=== PATIENT | female | born 1970 | race African-American/Black ===

== ENCOUNTER → 2020-06-21 | Emergency (ER) | payer MEDICAID, OTHER ==
[~2020-06-21] VITALS: Ht 157.5 cm; Wt 53.1 kg
[~2020-06-21] MED LIST: IBUPROFEN600 MG ORAL; NORCO 5-325 TA1 EACH ORAL; Omnipaque 350 100ml vial INJ PRN
[2020-06-21 18:27] VITALS: BP 159/92
--- NOTE | 2020-06-21 20:00 | Emergency Room Report ---
History of Present Illness General Chief Complaint: Pain Source: Patient Present Illness HPI This patient left prior to full physical exam evaluation by medical provider. I very briefly saw this patient right after she was triaged and explained to her that I will be ordering labs and imaging. I discussed with this patient that as soon as a bed opens she will be the first to be brought back to a bed in the main ED. Pt. verbalized her understanding and agreement. Pt. was not in the waiting room when being called several times. Pt. Did not have blood work or imaging. performed. Allergies: Coded Allergies: No Known Allergies (Unverified , 12/28/18) COVID-19 Screening Contact w/high risk pt: No Experienced COVID-19 symptoms?: No COVID-19 Testing performed PASTER HAT LINING: No Patient History Past Medical History: see triage record Last Menstrual Period: 06/04/2020 Now: No Nursing Documentation-PMH Past Medical History: No Stated History Physical Exam Vital Signs Date Time Temp Pulse Resp B/P (MAP) Pulse Ox O2 Delivery O2 Flow Rate FiO2 06/21/20 18:27 97.5 70 22 159/92 (114) 100 Room Air Medical Decision Making PA Attestation Dr. Quintana Is my supervising Physician whom patient management has been discussed with. ER Course This patient left prior to full physical exam evaluation by medical provider. I very briefly saw this patient right after she was triaged and explained to her that I will be ordering labs and imaging. I discussed with this patient that as soon as a bed opens she will be the first to be brought back to a bed in the main ED. Pt. verbalized her understanding and agreement. Pt. was not in the waiting room when being called several times. Pt. Did not have blood work or imaging. performed. Last Vital Signs Date Time Temp Pulse Resp B/P (MAP) Pulse Ox O2 Delivery O2 Flow Rate FiO2 06/21/20 18:27 97.5 70 22 159/92 (114) 100 Room Air Disposition: ELOPED Condition: Unknown Abbi Castellano Jun 21, 2020 20:00
== END | disposition left against medical advice (07) ==
LOC: EMR 19:00
DX: R52 Pain, unspecified (principal); Z53.21 Procedure and treatment not carried out due to patient leaving prior to being seen by health care provider
CPT/HCPCS: 99281

== ENCOUNTER 2020-07-22 16:18 | Emergency (ER) | payer MEDICAID ==
[~2020-07-22] VITALS: Ht 157.5 cm; Wt 54.0 kg
[~2020-07-22 16:18] MED LIST changes: -Omnipaque 350 100ml vial INJ PRN
[2020-07-22 17:00] VITALS: BP 124/72
--- NOTE | 2020-07-22 17:41 | Emergency Room Report ---
History of Present Illness General Chief Complaint: Vaginal Source: Patient Present Illness HPI 49-year-old female presents to the emergency department complaining of acute onset of green/brownish vaginal discharge that is malodorous x2 days. Patient reports onset occurred after having unprotected intercourse with her partner whom may have an STD. Patient denies recent antibiotic use she reports having history of BV once in the past. She denies itchiness, genital lesions/sores, blisters, swollen tender lymph nodes. Patient denies abdominal pain or tenderness. She denies nausea vomiting, fevers or chills. She denies joint pain. She denies urinary frequency, urgency, dysuria or hematuria. No other aggravating or relieving factors at this time. 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 Patient History Past Medical History: see triage record Past Surgical History: none Last Menstrual Period: 07/05/20 Now: No Reviewed Nursing Documentation: PMH: Agreed; PSxH: Agreed Nursing Documentation-PMH Past Medical History: No Stated History Review of Systems All Other Systems: negative except mentioned in HPI Physical Exam Vital Signs Date Time Temp Pulse Resp B/P (MAP) Pulse Ox O2 Delivery O2 Flow Rate FiO2 07/22/20 16:26 98.2 67 15 124/72 (89) 95 Room Air Sp02 EP Interpretation: reviewed, normal General Appearance: no apparent distress, alert, GCS 15, non-toxic Head: normocephalic, atraumatic Eyes: bilateral eye normal inspection, bilateral eye PERRL ENT: hearing grossly normal, normal voice Neck: full range of motion Respiratory: lungs clear, normal breath sounds, speaking full sentences Cardiovascular #1: regular rate, rhythm Gastrointestinal: non tender, soft Rectal: deferred Genitourinary: normal inspection, no CVA tenderness, adnexa normal, bladder normal, cervix normal, other - No CMT, there is green colored opaque discharge in the vaginal vault. Musculoskeletal: normal range of motion, gait/station normal, non-tender Neurologic: alert, motor strength/tone normal, oriented x3, sensory intact, responsive, speech normal Psychiatric: judgement/insight normal Skin: no rash, normal color Lymphatic: no adenopathy Medical Decision Making PA Attestation Dr. Escobar Is my supervising Physician whom patient management has been discussed with. Diagnostic Impression: Primary Impression: Vaginal discharge Additional Impression: Contact with or exposure to venereal diseases ER Course 49-year-old female presents to the emergency department complaining of acute onset of green/brownish vaginal discharge that is malodorous x2 days. Patient reports onset occurred after having unprotected intercourse with her partner whom may have an STD. Patient denies recent antibiotic use she reports having history of BV once in the past. She denies itchiness, genital lesions/sores, blisters, swollen tender lymph nodes. Patient denies abdominal pain or tenderness. She denies nausea vomiting, fevers or chills. She denies joint pain. She denies urinary frequency, urgency, dysuria or hematuria. No other aggravating or relieving factors at this time. Ddx considered but are not limited to UTi , Pyelo, STI, Stone, Cystitis, vaginal laceration, vaginitis. Vital signs: are WNL, pt. is afebrile H& PE are most consistent with: contact with venereal disease with symptoms of vaginal dc ORDERS: - Wet [place] : no clue, trich or yeast ED INTERVENTIONS: -Rocephin IM --- Doxy Rx'd for 7 days. DISCHARGE: At this time pt. is stable for d/c to home. Will provide printed patient care instructions, and any necessary prescriptions. Care plan and follow up instructions have been discussed with the patient prior to discharge. discussed with the patient prior to discharge. Last Vital Signs Date Time Temp Pulse Resp B/P (MAP) Pulse Ox O2 Delivery O2 Flow Rate FiO2 07/22/20 17:00 98.2 15 124/72 95 Room Air 07/22/20 16:26 67 Status: improved Disposition: HOME, SELF-CARE Condition: Stable Scripts Doxycycline Hyclate* (VIBRAMYCIN*) 100 Mg Capsule 100 MG ORAL EVERY 12 HOURS for 7 Days, #14 CAP 0 Refills Prov: Abbi Castellano 07/22/20 Referrals: [facility],REFERRING (PCP) Patient Instructions: Medical Screening Exam, Vaginitis, [id number] Additional Instructions: Take medications as directed. Follow up with a Primary Care Provider in 3-5 days, even if your symptoms have resolved. Return sooner to ED if new symptoms occur, or current symptoms become worse. - Please note that this Emergency Department Report was dictated using Tiendeocertified emergency vehicle technician technology software, occasionally this can lead to erroneous entry secondary to interpretation by the dictation equipment. Abbi Castellano Jul 22, 2020 17:41
[2020-07-22] MEDS ORDERED: Lidocaine 1% MPF 10mg/ml 5ml INJ ONE (18:30)
[2020-07-22] MEDS ORDERED: VIBRAMYCIN100 MG ORAL (18:37)
[2020-07-22 18:41] VITALS: BP 126/74
== END 2020-07-22 18:41 | disposition home or self-care (01) ==
LOC: EMR 16:50
DX: N89.8 Other specified noninflammatory disorders of vagina (principal); Z20.2 Contact with and (suspected) exposure to infections with a predominantly sexual mode of transmission
CPT/HCPCS: 87210; 96372; J0696; Z7502; 99283